=== PATIENT | male | born 1945 | race Caucasian/White ===

== ENCOUNTER 2018-04-04 17:12 | Emergency (ER) | payer OTHER ==
[~2018-04-04] VITALS: Ht 175.3 cm; Wt 104.3 kg
[2018-04-04] MEDS ORDERED: OMEPRAZOLE20 MG PO (17:49)
[2018-04-04] MEDS ORDERED: JARDIANCE25 MG PO (17:50)
[2018-04-04] MEDS ORDERED: METOPROLOL SUCC25 MG PO (17:50)
[2018-04-04] MEDS ORDERED: LOSARTAN-HCTZ1 EAC2 PO (17:50)
[2018-04-04] MEDS ORDERED: CARAFATE1 GM PO (17:50)
[2018-04-04] MEDS ORDERED: ASPIR 8181 MG PO (17:51)
[2018-04-04] MEDS ORDERED: FERROUS SULFAT325 MG PO (17:51)
[2018-04-04] MEDS ORDERED: TIROSINT25 MCG PO (17:51)
[2018-04-04] MEDS ORDERED: GABAPENTIN800 MG PO (17:51)
[2018-04-04] MEDS ORDERED: FLUOXETINE HCL20 MG PO (17:52)
[2018-04-04] MEDS ORDERED: ALPRAZOLAM0.25 MG PO (17:53)
[2018-04-04] MEDS ORDERED: TAMS0.4C PO (17:53)
[2018-04-04] MEDS ORDERED: CARDURA XL4 MG PO (17:53)
[2018-04-04] MEDS ORDERED: HUMALOG100 UNIT/1 SQ (17:53)
[2018-04-04] MEDS ORDERED: NIFE60TA3 PO (17:54)
[2018-04-04] MEDS ORDERED: DICY20TA PO (17:54)
[2018-04-04] MEDS ORDERED: ALLOPURINOL300 MG PO (17:54)
[2018-04-04] MEDS ORDERED: LANTUS SOL100 UNIT/1 SQ (17:55)
[2018-04-04] MEDS ORDERED: LIPITOR20 MG PO (17:55)
== END 2018-04-04 21:51 | disposition home or self-care (01) ==
LOC: ER 17:12
DX: R06.02 Shortness of breath (principal); I11.0 Hypertensive heart disease with heart failure